=== PATIENT | female | born 1995 | race African-American/Black ===

== ENCOUNTER 2017-10-01 23:31 | Emergency (ER) | payer BC ==
[~2017-10-01] VITALS: Ht 157.5 cm; Wt 62.0 kg
[2017-10-01 23:42] VITALS: BP 132/58; PULSE 83; RESP 12; TEMP 97.9; O2SAT 100
[2017-10-02] MEDS ORDERED: VENTAER INH (00:47)
--- NOTE | 2017-10-02 01:09 | PD ---
HPI Chief Complaint: Abdominal Pain Time Seen by Provider: 00:51 Travel History International Travel<30 days: No Contact w/Intl Traveler<30days: No Traveled to known affect area: No History of Present Illness HPI 22-year-old female complains of left upper quadrant abdominal pain. Patient stated the pain started this morning. Patient states the pain is cramping pain and sharp pain localized to left upper quadrant of the abdomen. Patient denies any pain radiation. Patient states the pain got worse this evening. Patient states that the pain is worse with eating. Patient denies any nausea vomiting diarrhea. Patient denies any dysuria or frequency. Patient denies any vaginal discharge or bleeding. Patient states that she had low grade fever this morning. Patient states that she had sore throat this morning. On a scale of 1 -10 the pain is a 3. PFSH Past Medical History Asthma: Yes Tetanus Vaccination: > 5 Years Influenza Vaccination: No ?: Not LMP: 09/25/17 : 1 : 1 Past Surgical History Surgical History: No Previous Surgery Social History Alcohol Use: Yes ("WEEKENDS" STATED 10/02/17) Tobacco Use: No Substance Use: Yes ("OCCASIONAL WEED") Allergies-Medications (Allergen,Severity, Reaction): Coded Allergies: No Known Allergies (Verified Allergy, Unknown, 10/02/17) Reported Meds & Prescriptions Reported Meds & Active Scripts Active Reported Ventolin Hfa 18 GM Inh (Albuterol Sulfate) 90 Mcg/Act Aer 2 Puff INH Q4H PRN Review of Systems General / Constitutional: No: Fever Eyes: No: Visual changes HENT: No: Headaches Cardiovascular: No: Chest Pain or Discomfort Respiratory: No: Shortness of Breath Gastrointestinal: Positive: Abdominal Pain Genitourinary: No: Dysuria Musculoskeletal: No: Pain Skin: No Rash Neurologic: No: Weakness Psychiatric: No: Depression Endocrine: No: Polydipsia Hematologic/Lymphatic: No: Easy Bruising Physical Exam Narrative GENERAL: Well-nourished, well-developed patient. SKIN: Focused skin assessment warm/dry. HEAD: Normocephalic. EYES: No scleral icterus. No injection or drainage. NECK: Supple, trachea midline. No JVD or lymphadenopathy. CARDIOVASCULAR: Regular rate and rhythm without murmurs, gallops, or rubs. RESPIRATORY: Breath sounds equal bilaterally. No accessory muscle use. GASTROINTESTINAL: Abdomen soft, nondistended. Patient has moderate tenderness on palpation left upper quadrant of the abdomen. No rebound tenderness. No mass. MUSCULOSKELETAL: No cyanosis, or edema. BACK: Nontender without obvious deformity. No CVA tenderness. Neurologic exam normal. Data Data Last Documented VS Vital Signs Date Time Temp Pulse Resp B/P (MAP) Pulse Ox O2 Delivery O2 Flow Rate FiO2 10/01/17 23:42 97.9 83 12 132/58 (82) 100 Orders Orders Complete Blood Count With Diff (10/02/17 01:04) Comprehensive Metabolic Panel (10/02/17 01:04) Lipase (10/02/17 01:04) Urinalysis - C+S If Indicated (10/02/17 01:04) Ct Abd/Pel W Iv Contrast(Rout) (10/02/17 01:04) Iv Access Insert/Monitor (10/02/17 01:04) Ecg Monitoring (10/02/17 01:04) Oximetry (10/02/17 01:04) Sodium Chloride 0.9% Flush (Ns Flush) (10/02/17 01:15) Famotidine Inj (Pepcid Inj) (10/02/17 01:15) Ed Urine Pregnancytest Poc (10/02/17 01:04) Al-Mag Hy-Si 40-40-4 Mg/Ml Liq (Mag-Al P (10/02/17 01:15) Hekte-Uodekf-Voqlgd-Pb Liq ( Liq (10/02/17 01:15) Urine Culture (10/02/17 01:10) Iohexol 350 Inj (Omnipaque 350 Inj) (10/02/17 02:23) Labs Laboratory Tests Test 10/02/17 01:10 10/02/17 01:20 Urine Color YELLOW Urine Turbidity MOD Urine pH 6.5 Urine Specific [place] 1.031 Urine Protein NEG mg/dL Urine Glucose (UA) NEG mg/dL Urine Ketones NEG mg/dL Urine Occult Blood NEG Urine Nitrite NEG Urine Bilirubin NEG Urine Leukocyte Esterase TRACE Urine WBC 9-14 /hpf Urine Squamous Epithelial Cells > 8 /hpf Urine Amorphous Sediment MOD Urine Bacteria MOD /hpf Urine Mucus FEW /lpf Microscopic Urinalysis Comment CULTURE INDICATED White Blood Count 5.4 TH/MM3 Red Blood Count 4.86 MIL/MM3 Hemoglobin 13.4 GM/DL Hematocrit 40.0 % Mean Corpuscular Volume 82.4 FL Mean Corpuscular Hemoglobin 27.7 PG Mean Corpuscular Hemoglobin Concent 33.6 % Red Cell Distribution Width 14.1 % Platelet Count 299 TH/MM3 Mean Platelet Volume 7.7 FL Neutrophils (%) (Auto) 40.6 % Lymphocytes (%) (Auto) 51.2 % Monocytes (%) (Auto) 5.6 % Eosinophils (%) (Auto) 2.0 % Basophils (%) (Auto) 0.6 % Neutrophils # (Auto) 2.2 TH/MM3 Lymphocytes # (Auto) 2.8 TH/MM3 Monocytes # (Auto) 0.3 TH/MM3 Eosinophils # (Auto) 0.1 TH/MM3 Basophils # (Auto) 0.0 TH/MM3 CBC Comment DIFF FINAL Differential Comment Blood Urea Nitrogen 11 MG/DL Creatinine 0.75 MG/DL Random Glucose 85 MG/DL Total Protein 8.0 GM/DL Albumin 3.9 GM/DL Calcium Level 9.0 MG/DL Alkaline Phosphatase 91 U/L Aspartate Amino Transf (AST/SGOT) 22 U/L Alanine Aminotransferase (ALT/SGPT) 18 U/L Total Bilirubin 0.3 MG/DL Sodium Level 141 MEQ/L Potassium Level 3.6 MEQ/L Chloride Level 107 MEQ/L Carbon Dioxide Level 28.8 MEQ/L Anion Gap 5 MEQ/L Estimat Glomerular Filtration Rate 119 ML/MIN Lipase 189 U/L MDM Medical Decision Making Medical Screen Exam Complete: Yes Emergency Medical Condition: Yes Interpretation(s) 2:28 AM. CBC within normal limit. CMP within normal limit. UA positive with WBC and bacteria. [address] scan abdomen pelvis negative acute pathology. Differential Diagnosis Differential diagnosis including gastritis, PUD, pancreatitis, cholecystitis, colitis, UTI, pyelonephritis, nephrolithiasis. Narrative Course 22-year-old female with left upper quadrant abdominal pain. Pepcid 20 mg IV. Maalox 30 cc by mouth. 10 cc by mouth. Bactrim DS one tablet by mouth given. Diagnosis Primary Impression: Gastritis Qualified Codes: K29.00 - Acute gastritis without bleeding Additional Impression: UTI (urinary tract infection) Qualified Codes: N30.00 - Acute cystitis without hematuria Patient Instructions: General Instructions Additional Instructions: Take medications as directed. Follow-up with personal physician and government contracts manager if persistent problem. Return if worse. Med/Other Pt SpecificInfo: Prescription(s) given Scripts Sulfamethoxazole-Trimethoprim (Bactrim DS) 800-160 Mg Tab 1 TAB PO BID for Infection, #14 TAB 0 Refills Prov: Law Miller MD 10/02/17 Dicyclomine (Bentyl) 10 Mg Cap 10 MG PO TID Y for Bowel Management, #21 CAP 0 Refills Prov: Law Miller MD 10/02/17 Sucralfate (Carafate) 1 Gram Tab 1 GM PO QID for Ulcer Prevention, #120 TAB 0 Refills On empty stomach Prov: Law Miller MD 10/02/17 Pantoprazole (Protonix) 40 Mg Tab 40 MG PO DAILY for Reflux, #30 TAB 0 Refills Prov: Law Miller MD 10/02/17 Disposition: 01 DISCHARGE HOME Condition: Stable Law Miller MD Oct 02, 2017 01:09
[2017-10-02] MEDS ORDERED: ATROPINE/SCOPOLAM/HYOSCYAM/PB ELIXIR 10 ML CUP PO ONE (01:15)
[2017-10-02] MEDS ORDERED: SODIUM CHLORIDE 0.9% FLUSH 10 ML FLUSH IV FLUSH PRN (01:15)
[2017-10-02] MEDS ORDERED: ALUMINUM/MAGNESIUM/SIMETH 30 ML CUP PO ONE (01:15)
[2017-10-02] MEDS ORDERED: FAMOTIDINE 20 MG/2 ML VIAL IV PUSH ONE (01:15)
[2017-10-02 01:34] LABS: AUTOMATED NEUTROPHIL # 2.2 TH/MM3 (1.8-7.7); BASOPHIL % 0.6 % (0.0-2.0); EOSINOPHIL # 0.1 TH/MM3 (0-0.4); HEMOGLOBIN 13.4 GM/DL (11.6-15.3); LYMPH % 51.2 % (9.0-44.0); LYMPHOCYTE # 2.8 TH/MM3 (1.0-4.8); MEAN CELL VOLUME 82.4 FL (80.0-100.0); MEAN CORPUSCULAR HEMOGLOBIN 27.7 PG (27.0-34.0); MEAN CORPUSCULAR HGB CONC 33.6 % (32.0-36.0); MEAN PLATELET VOLUME 7.7 FL (7.0-11.0); MONO % 5.6 % (0.0-8.0); MONOCYTE # 0.3 TH/MM3 (0-0.9); NEUT % 40.6 % (16.0-70.0); PLATELET COUNT 299 TH/MM3 (150-450); RED BLOOD COUNT 4.86 MIL/MM3 (4.00-5.30); RED CELL DISTRIBUTION WIDTH 14.1 % (11.6-17.2); WHITE BLOOD COUNT 5.4 TH/MM3 (4.0-11.0)
[2017-10-02 01:37] LABS: BILIRUBIN, URINE NEG (NEG); BLOOD, URINE NEG (NEG); GLUCOSE,URINE NEG (NEG); KETONE, URINE NEG (NEG); NITRITE,URINE NEG (NEG); PH, URINE 6.5 (5.0-8.5); URINE LEUKOCYTE ESTERASE TRACE (NEG)
[2017-10-02 01:53] LABS: CHLORIDE 107 MEQ/L (98-107); SODIUM (NA) 141 MEQ/L (136-145)
[2017-10-02 01:55] LABS: MUCUS URINE FEW /lpf (OCC); SQUAMOUS EPITHELIAL CELL URINE > 8 /hpf (0-5); URINE COLOR YELLOW (YELLW/STRAW)
[2017-10-02 01:57] LABS: AMORPHOUS SEDIMENT, URINE MOD; BACTERIA, URINE MOD /hpf
[2017-10-02 01:57] LABS: ALBUMIN 3.9 GM/DL (3.4-5.0); BICARBONATE 28.8 MEQ/L (21.0-32.0); GLUCOSE,RANDOM 85 MG/DL (74-106)
[2017-10-02 01:58] LABS: BLOOD UREA NITROGEN 11 MG/DL (7-18)
[2017-10-02 02:00] LABS: ALT (GPT) 18 U/L (9-42); AST (GOT) 22 U/L (16-38); CREATININE 0.75 MG/DL (0.50-1.00); GLOMERULAR FILTRATION RATE 119 ML/MIN (>89)
[2017-10-02 02:02] LABS: TOTAL BILIRUBIN ADULT 0.3 MG/DL (0.2-1.0)
[2017-10-02 02:03] LABS: ALKALINE PHOSPHATASE 91 U/L (45-117)
[2017-10-02] MEDS ORDERED: IOHEXOL 350 MG/ML 10 ML VIAL (for RAD DIAG) IVCONTRAST ONE (02:23)
--- NOTE | 2017-10-02 02:30 | RADRPT ---
EXAM DATE/TIME: 10/02/2017 02:12 [facility] COMPARISON: No previous studies available for comparison. INDICATIONS : Left upper quadrant pain. IV CONTRAST: 100 cc Omnipaque 350 (iohexol) IV ORAL CONTRAST: No oral contrast ingested. RADIATION DOSE: 8.79 CTDIvol (mGy) MEDICAL HISTORY : None SURGICAL HISTORY : None. ENCOUNTER: Initial ACUITY: 1 day PAIN SCALE: 3/10 LOCATION: Left upper quadrant TECHNIQUE: Volumetric scanning of the abdomen and pelvis was performed. Using automated exposure control and ad justment of the mA and/or kV according to patient size, radiation dose was kept as low as reasonably achievable to obtain optimal diagnostic quality images. DICOM format image data is available electro nically for review and comparison. FINDINGS: LOWER LUNGS: The visualized lower lungs are clear. LIVER: Homogeneous density without lesion. There is no dilation of the biliary tree. No calcified gallston es. SPLEEN: Normal size without lesion. PANCREAS: Within normal limits. KIDNEYS: Normal in size and shape. There is no mass, stone or hydronephrosis. ADRENAL GLANDS: Within normal limits. VASCULAR: There is no aortic aneurysm. BOWEL/MESENTERY: The stomach, small bowel, and colon demonstrate no acute abnormality. There is no free intraperitone al air or fluid. ABDOMINAL WALL: Within normal limits. RETROPERITONEUM: There is no lymphadenopathy. BLADDER: No wall thickening or mass. REPRODUCTIVE: Within normal limits. INGUINAL: There is no lymphadenopathy or hernia. MUSCULOSKELETAL: Within normal limits for patient age. CONCLUSION: No acute abnormality is identified within the abdomen or pelvis. Len Young MD on October 02, 2017 at 2:26 Board Certified Radiologist. This report was verified electronically.
[2017-10-02] MEDS ORDERED: SULFAMETHOXAZOLE-TRIMETHOPRIM DS 800-160 MG TAB PO ONE (02:45)
[2017-10-02] MEDS ORDERED: BACT800T5 PO (02:48)
[2017-10-02] MEDS ORDERED: PROT40TA PO (02:48)
[2017-10-02] MEDS ORDERED: DICY10 PO (02:48)
[2017-10-02] MEDS ORDERED: CARA1TAB6 PO (02:48)
[2017-10-02 02:57] VITALS: BP 104/53
== END 2017-10-02 03:00 | disposition home or self-care (01) ==
LOC: PHED 23:31
DX: K29.00 Acute gastritis without bleeding (principal); N30.00 Acute cystitis without hematuria; J45.909 Unspecified asthma, uncomplicated; B96.20 Unspecified Escherichia coli [E. coli] as the cause of diseases classified elsewhere; Z16.11 Resistance to penicillins; Z16.29 Resistance to other single specified antibiotic
CPT/HCPCS: 74177; 80053; 81001; 83690; 84703; 85025; 87077; 87086; 87186; 96374; 99284; Q9967